=== PATIENT | male | born 1950 | race Caucasian/White ===

== ENCOUNTER 2024-09-17 07:24 | Outpatient (CLI) | payer BC, MEDICAID ==
[~2024-09-17] VITALS: Ht 170.2 cm; Wt 83.9 kg
[~2024-09-17 07:24] MED LIST: CHOL100046 PO; DEXT350P PO; ESOM20CA33 PO; METH40TA13 PO; MULT-342 PO; OMEG1CAP46 PO; OMEG500C PO; OSC500T PO
[2024-09-17] MEDS: albuterol 2.5 MG/3 ML nebule NEB ONE (08:20)
[2024-09-17 08:24] VITALS: PULSE 71; RESP 16; O2SAT 94
[2024-09-17 08:35] VITALS: PULSE 77; RESP 17
== END 2024-09-17 23:59 | disposition home or self-care (01) ==
LOC: RT 07:24
PROVIDERS: ATTEND Family Medicine
DX: R06.02 Shortness of breath (principal)
CPT/HCPCS: 94060; 94729; 94760; A4615